=== PATIENT | female | born 1960 | race American Indian/Alaskan Native ===

== ENCOUNTER 2018-08-02 12:23 | Day surgery (SDC) | payer OTHER ==
[2018-07-21 11:21] VITALS: BMI 21.9
[2018-08-02 13:16] LABS: BASO # 0.02 K/mm3 (0.0-2.0); BASO % 0.3 % (0.0-3.0); EOS # 0.1 (0.0-0.7); EOS % 0.8 % (1.5-5.0); GRAN # 5.72 (1.4-6.5); GRAN % 73.7 % (50.0-68.0); HEMOGLOBIN 14.7 g/dL (12.0-16.0); LYMPH # 1.6 (1.2-3.4); LYMPH % 20.8 % (22.0-35.0); MEAN CORPUSCULAR HEMOGLOBIN 31.3 pg (25.0-35.0); MEAN CORPUSCULAR HGB CONC 33.3 g/dl (31.0-37.0); MEAN PLATELET VOLUME 9.6 fl (7.0-11.0); MONO # 0.3 (0.1-0.6); MONO % 4.4 % (1.0-6.0); RBC 4.7 10^6/uL (3.5-6.1); WHITE BLOOD COUNT 7.8 10^3/uL (4.5-11.0)
[2018-08-02 13:29] LABS: BLOOD UREA NITROGEN 13 mg/dL (7-21); CALCIUM 9.8 mg/dL (8.4-10.5); GFR NON-AFRICAN AMERICAN 57
[2018-08-02 13:32] LABS: INR 1.09; PROTHROMBIN TIME 12.6 SECONDS (9.4-12.5)
[2018-08-02] MEDS ORDERED: Midazolam 2 MG/2 ML VIAL ONE (14:39)
[2018-08-02] MEDS ORDERED: Lidocaine 1% Inj (20ml) ONE (14:40)
[2018-08-02] MEDS ORDERED: Midazolam 2 MG/2 ML VIAL IVP ONE (15:35)
[2018-08-02] MEDS ORDERED: Oxycodone/Acetaminophen 5/325 mg Tab PO PRN (15:54)
[2018-08-02] MEDS ORDERED: Sodium Chloride 0.45% 1,000 ML IV SCH (16:00)
[2018-08-02 16:24] VITALS: RESP 16
[2018-08-02] MEDS ORDERED: Oxycodone/Acetaminophen 5/325 mg Tab ONE (16:33)
--- NOTE | 2018-08-02 18:32 | CT ---
PROCEDURE: CT guided right lung biopsy HISTORY: Left upper lobe lung carcinoma. New hyper metabolic nodules on PET-CT in the right lower lung. PHYSICIAN(S): Prosper Saunders MD. TECHNIQUE: The relative risks and indications of the procedure were explained to the patient and consent obtained. The patient was placed prone on the CT scanner and preliminary images through the lung bases obtained. Conscious sedation and monitoring were provided throughout the procedure by a nurse. The nodular densities in the right lower lung posteriorly are once again demonstrated. The large a metabolic mass is once again seen. A 1.5 cm nodule with activity was selected lateral to the larger mass. A right posterior approach was selected and the area prepped and draped in the usual sterile fashion. 1% Xylocaine was used to anesthetize the skin and soft tissues. A 19 gauge guiding needle was advanced into the 1.5 cm right posterior lung mass. Its position was confirmed with CT. Using coaxial technique, multiple core biopsies were obtained. The postprocedure images show no evidence of large pneumothorax or significant hemorrhage. IMPRESSION: 1. CT-guided right posterior lung biopsy
[2018-08-02 18:35] VITALS: O2SAT 94
[2018-08-02 18:36] VITALS: TEMP 98.1
[2018-08-02 18:38] VITALS: BP 130/80; PULSE 79
--- NOTE | 2018-08-02 18:59 | RAD ---
Date of service: 08/02/2018 HISTORY: Right lung biopsy August 02, 2018 COMPARISON: No prior. FINDINGS: LUNGS: Right lower lobe mass again identified. Peripheral consolidative change perhaps related to biopsy represents a new finding. PLEURA: No significant pleural effusion identified, no pneumothorax apparent. CARDIOVASCULAR: No atherosclerotic calcification present Normal. OSSEOUS STRUCTURES: No significant abnormalities. VISUALIZED UPPER ABDOMEN: Normal. OTHER FINDINGS: None. IMPRESSION: Status post right lower lobe biopsy. No pneumothorax identified.
== END 2018-08-02 18:45 | disposition home or self-care (01) ==
LOC: SDS 12:23
PROVIDERS: ATTEND Radiology Vascular & Interventional Radiology
DX: C34.12 Malignant neoplasm of upper lobe, left bronchus or lung (principal); R91.1 Solitary pulmonary nodule; F17.210 Nicotine dependence, cigarettes, uncomplicated; J43.9 Emphysema, unspecified
CPT/HCPCS: 32405; 36415; 71045; 77012; 80048; 85025; 85610; 85730; 88305; 99152; 99153; J2250; J2405; J3010; J7030